=== PATIENT | male | born 1950 | race Caucasian/White ===

== ENCOUNTER 2017-10-23 08:34 | Inpatient (IN) | payer MEDICARE ==
[~2017-10-23] VITALS: Ht 180.3 cm; Wt 78.2 kg
[~2017-10-23 08:34] MED LIST: ASPI-1265 PO; COR3.125T PO; DULO-31 PO; GLIP5TAB13 PO; LOSA50TA37 PO; METF500T PO; NITR0.4T SL; NORCO10T PO; PRAV20TA60 PO
[2017-10-23] MEDS ORDERED: ondansetron/PF 4mg/2ml inj IV ONE (09:00)
[2017-10-23] MEDS ORDERED: morphine 4 MG/ML inj SYRINge IV ONE (09:00)
[2017-10-23] MEDS ORDERED: normal saline 1000ML IV soln IVB ONE (09:00)
[2017-10-23 09:16] LABS: BASOPHILS # (AUTO) 0.1 X10'3 (0-0.2); BASOPHILS % (AUTO) 0.5 % (0-1); EOSINOPHILS # (AUTO) 0.2 X10'3 (0-0.9); EOSINOPHILS % (AUTO) 1.1 % (0-6); HEMATOCRIT 41.2 % (42.0-52.0); HEMOGLOBIN 14.1 g/dl (14.0-17.9); LYMPHOCYTES # (AUTO) 0.9 X10'3 (1.1-4.8); LYMPHOCYTES % (AUTO) 6.5 % (21-51); MEAN CORPUSCULAR HEMOGLOBIN 28.8 PG (27.0-31.0); MEAN CORPUSCULAR HGB CONC 34.3 % (33.0-36.5); MEAN PLATELET VOLUME 8.4 FL (7.4-10.4); MONOCYTES # (AUTO) 1.3 X10'3 (0-0.9); MONOCYTES % (AUTO) 8.9 % (2-12); NEUTROPHILS # (AUTO) 11.7 X10'3 (1.8-7.7); PLATELET COUNT 246 X10'3 (140-440); RED CELL DISTRIBUTION WIDTH 13.4 % (11.5-14.5); WHITE BLOOD COUNT 14.1 X10'3 (4.5-11.0)
[2017-10-23 09:20] LABS: CLARITY,URINE CLEAR (Clear); COLOR,URINE YELLOW (Yellow); GLUCOSE, URINE 100 mg/dl (Neg); KETONES,URINE NEGATIVE (Neg); LEUKOCYTE ESTERASE ,URINE NEGATIVE (Neg); NITRITES, URINE NEGATIVE (Neg); OCCULT BLOOD,URINE SMALL (Neg); PH,URINE 5.5 (4.8-8.0); PROTEIN,URINE NEGATIVE (Neg); UROBILINOGEN,URINE 0.2 E.U/dL (0.2-1.0)
[2017-10-23 09:22] LABS: UA COLLECTION TYPE CLN CATCH MIDSTREAM
[2017-10-23 09:26] LABS: PROTHROMBIN TIME 10.1 SECONDS (9.0-12.0)
[2017-10-23 09:28] LABS: BACTERIA,URINE NONE SEEN /HPF (Neg); COARSE GRANULAR CAST 0-3 /LPF (NEGATIVE); HYALINE CASTS 0-3 /LPF (NEGATIVE); MUCUS STRANDS FEW /LPF (Neg); SQUAMOUS EPITHELIAL CELL,UR FEW /LPF (FEW); WBC,URINE 0-4 /HPF (0-4)
[2017-10-23 09:32] LABS: ALANINE AMINOTRANSFERASE 27 U/L (12-78); ALBUMIN 3.5 G/DL (3.4-5.0); ALBUMIN/GLOBULIN RATIO 0.9 (1.1-1.5); ALKALINE PHOSPHATASE 75 IU/L (46-116); ANION GAP 10 (8-16); ASPARTATE AMINO TRANSFERASE 12 U/L (10-37); BILIRUBIN,TOTAL 1.1 MG/DL (0.1-1.0); BLOOD UREA NITROGEN 13 MG/DL (7-18); BUN/CREATININE RATIO 10.9 (5.4-32.0); CALCIUM 9.2 MG/DL (8.5-10.1); CHLORIDE 100 MMOL/L (99-107); CREATININE 1.19 MG/DL (0.60-1.10); GLUCOSE 233 MG/DL (70-104); LIPASE 129 U/L (73-393); POTASSIUM 4.2 MMOL/L (3.5-5.1); SODIUM 137 MMOL/L (135-145); TOTAL PROTEIN 7.5 G/DL (6.4-8.2); eGFR 61 ML/MIN
[2017-10-23] MEDS ORDERED: MESSAGE TO PHARMACY PO ONE (12:15)
[2017-10-23] MEDS ORDERED: glucagon, human recombinant 1mg kit SUBCUT PRN (12:15)
[2017-10-23] MEDS ORDERED: ondansetron/PF 4mg/2ml inj IV PRN (12:15)
[2017-10-23] MEDS ORDERED: acetaminophen 325mg tablet PO PRN (12:15)
[2017-10-23] MEDS ORDERED: insulin Lispro (HumaLOG) vial - multi-dose SQ SCH (12:15)
[2017-10-23] MEDS ORDERED: magnesium hydroxide 30ml (MOM) UD suspension PO PRN (12:15)
[2017-10-23] MEDS ORDERED: dextrose ORAL solution 15 GM/59 ML bottle PO PRN ×2 (12:15)
[2017-10-23] MEDS ORDERED: HYDROmorphone inj. 0.5 MG/0.5 ML DISP.SYRIN IV PRN (12:15)
[2017-10-23] MEDS ORDERED: dextrose 50%-water 50ml dispensing syringe IV PRN ×2 (12:15)
[2017-10-23 12:38] LABS: HEMOGLOBIN A1C 8.2 % (4.5-6.2)
[2017-10-23] MEDS: normal saline 1000ml 1,000 ML IV SCH ×2 (12:41→23:06)
[2017-10-23] MEDS ORDERED: piperacillin-tazo 2.25gm/50ml 50 ML IV SCH (16:00)
[2017-10-23 16:53] VITALS: BP 152/99
[2017-10-23] MEDS: morphine 4 MG/ML inj SYRINge IV PRN (17:38)
[2017-10-23] MEDS: piperacillin/tazo 4.5gm/100ml 100 ML IV SCH ×2 (17:39→23:41)
[2017-10-23 18:00] VITALS: BP 130/68
[2017-10-23] MEDS ORDERED: temazepam 15mg capsule PO PRN (21:00)
[2017-10-23] MEDS: carVEDilol 3.125mg tablet PO SCH (21:01)
[2017-10-23] MEDS: atorvastatin 10mg tablet PO SCH (21:02)
[2017-10-23] MEDS: insulin glargine (Lantus) pen - multi-dose SQ SCH (21:15)
[2017-10-24] VITALS (13 sets, daily range): BP systolic 100–136; BP diastolic 56–86
[2017-10-24 04:52] LABS: BASOPHILS % (AUTO) 0.1 % (0-1); EOSINOPHILS % (AUTO) 0 % (0-6); HEMATOCRIT 38.2 % (42.0-52.0); HEMOGLOBIN 13.1 g/dl (14.0-17.9); LYMPHOCYTES # (AUTO) 1.1 X10'3 (1.1-4.8); LYMPHOCYTES % (AUTO) 6.5 % (21-51); MEAN CORPUSCULAR HEMOGLOBIN 29.1 PG (27.0-31.0); MEAN CORPUSCULAR HGB CONC 34.3 % (33.0-36.5); MEAN CORPUSCULAR VOLUME 84.9 FL (78-98); MEAN PLATELET VOLUME 9.1 FL (7.4-10.4); MONOCYTES # (AUTO) 2.1 X10'3 (0-0.9); MONOCYTES % (AUTO) 12.7 % (2-12); NEUTROPHILS # (AUTO) 13.1 X10'3 (1.8-7.7); NEUTROPHILS % (AUTO) 80.7 % (42-75); PLATELET COUNT 194 X10'3 (140-440); RED CELL DISTRIBUTION WIDTH 13.7 % (11.5-14.5); WHITE BLOOD COUNT 16.2 X10'3 (4.5-11.0)
[2017-10-24 05:27] LABS: ALANINE AMINOTRANSFERASE 41 U/L (12-78); ALBUMIN 2.7 G/DL (3.4-5.0); ALBUMIN/GLOBULIN RATIO 0.7 (1.1-1.5); ALKALINE PHOSPHATASE 67 IU/L (46-116); ANION GAP 10 (8-16); ASPARTATE AMINO TRANSFERASE 31 U/L (10-37); BLOOD UREA NITROGEN 12 MG/DL (7-18); BUN/CREATININE RATIO 9.2 (5.4-32.0); CALCIUM 8.2 MG/DL (8.5-10.1); CHLORIDE 104 MMOL/L (99-107); CREATININE 1.31 MG/DL (0.60-1.10); GLUCOSE 171 MG/DL (70-104); POTASSIUM 3.7 MMOL/L (3.5-5.1); SODIUM 139 MMOL/L (135-145); TOTAL CARBON DIOXIDE 25.5 MMOL/L (24-32); TOTAL PROTEIN 6.4 G/DL (6.4-8.2); eGFR 55 ML/MIN
[2017-10-24 07:06] LABS: INR 1.2 INR; PROTHROMBIN TIME 12.2 SECONDS (9.0-12.0)
[2017-10-24] MEDS: aspirin 81mg tab.chew PO SCH (07:13)
[2017-10-24] MEDS: normal saline 1000ml 1,000 ML IV SCH ×2 (08:12→15:34)
[2017-10-24] MEDS: carVEDilol 3.125mg tablet PO SCH ×2 (09:30→19:31)
[2017-10-24] MEDS: losartan 50mg tablet PO SCH (09:30)
[2017-10-24] MEDS: duloxetine 30mg CAPSULE.DR PO SCH (09:30)
[2017-10-24] MEDS: piperacillin/tazo 4.5gm/100ml 100 ML IV SCH (09:55)
[2017-10-24] MEDS ORDERED: ringers solution, lacted 1,000 ML IV SCH (11:43)
[2017-10-24] MEDS ORDERED: meperidine/PF 50mg/ml syringe IV PRN ×3 (11:45)
[2017-10-24] MEDS ORDERED: proCHLORperazine 10 MG/2 ml inj IV PRN (11:45)
[2017-10-24] MEDS ORDERED: ondansetron/PF 4mg/2ml inj IV PRN (11:45)
[2017-10-24] MEDS ORDERED: morphine 4 MG/ML inj SYRINge IV PRN ×2 (11:45)
[2017-10-24] MEDS ORDERED: ceFAZolin 1000mg inj ONE (12:23)
[2017-10-24] MEDS ORDERED: BUPIVAcaine/PF 2.5 mg/ml (0.25%) 30ml vial ONE (12:23)
[2017-10-24] MEDS ORDERED: midazolam 2 mg/2 ml injection ONE (12:30)
[2017-10-24] MEDS ORDERED: propofol inj 20 ML IV ONE (12:30)
[2017-10-24] MEDS ORDERED: rocuronium 10mg/ml inj IV ONE (12:30)
[2017-10-24] MEDS ORDERED: fentaNYL /PF 50mcg/ml 5ml ampule ONE (12:30)
[2017-10-24] MEDS ORDERED: metoprolol tartrate 1mg/ml inj IV ONE (13:33)
[2017-10-24] MEDS ORDERED: glycopyrrolate 0.2mg/ml inj ONE (13:34)
[2017-10-24] MEDS ORDERED: neostigmine methylsulfate 1 MG/ML 10ml vial ONE (13:34)
[2017-10-24] MEDS: morphine 4 MG/ML inj SYRINge IV PRN ×2 (15:34→20:08)
[2017-10-24] MEDS: levoFLOXACIN-Levaquin 500mg/D5 100 ML IV SCH (17:38)
[2017-10-24] MEDS: lactobacillus rhamnosus 10,000 MMU CELLS/CAPSULE PO SCH (19:31)
[2017-10-24] MEDS: mag hydrox/Alum hydrox/simeth 30ml oral suspension PO PRN (19:32)
[2017-10-24] MEDS: atorvastatin 10mg tablet PO SCH (20:08)
[2017-10-24] MEDS: insulin glargine (Lantus) pen - multi-dose SQ SCH (22:08)
[2017-10-24] MEDS: Potassium Cl inj 10 MEQ in normal saline 1000ml 1,000 ML IV SCH (22:16)
[2017-10-24] MEDS: HYDROcodone/acetaminophen 10/325mg tab PO PRN (22:23)
[2017-10-25] VITALS: BP 123/71
[2017-10-25 04:00] VITALS: BP 102/68
[2017-10-25 05:27] LABS: BASOPHILS % (AUTO) 0.2 % (0-1); EOSINOPHILS % (AUTO) 0 % (0-6); HEMATOCRIT 34.7 % (42.0-52.0); HEMOGLOBIN 12.1 g/dl (14.0-17.9); LYMPHOCYTES # (AUTO) 0.8 X10'3 (1.1-4.8); LYMPHOCYTES % (AUTO) 8.2 % (21-51); MEAN CORPUSCULAR HEMOGLOBIN 29.7 PG (27.0-31.0); MEAN CORPUSCULAR VOLUME 84.7 FL (78-98); MEAN PLATELET VOLUME 8.7 FL (7.4-10.4); MONOCYTES # (AUTO) 1.1 X10'3 (0-0.9); MONOCYTES % (AUTO) 11.4 % (2-12); NEUTROPHILS # (AUTO) 7.7 X10'3 (1.8-7.7); NEUTROPHILS % (AUTO) 80.2 % (42-75); PLATELET COUNT 191 X10'3 (140-440); RED CELL DISTRIBUTION WIDTH 13.8 % (11.5-14.5); WHITE BLOOD COUNT 9.6 X10'3 (4.5-11.0)
[2017-10-25 05:43] LABS: ALANINE AMINOTRANSFERASE 55 U/L (12-78); ALBUMIN 2.2 G/DL (3.4-5.0); ALBUMIN/GLOBULIN RATIO 0.6 (1.1-1.5); ALKALINE PHOSPHATASE 60 IU/L (46-116); ANION GAP 8 (8-16); ASPARTATE AMINO TRANSFERASE 40 U/L (10-37); BILIRUBIN,TOTAL 1.2 MG/DL (0.1-1.0); BLOOD UREA NITROGEN 16 MG/DL (7-18); BUN/CREATININE RATIO 12.7 (5.4-32.0); CALCIUM 7.6 MG/DL (8.5-10.1); CHLORIDE 104 MMOL/L (99-107); CREATININE 1.26 MG/DL (0.60-1.10); GLUCOSE 210 MG/DL (70-104); POTASSIUM 4.1 MMOL/L (3.5-5.1); SODIUM 139 MMOL/L (135-145); TOTAL CARBON DIOXIDE 26.7 MMOL/L (24-32); TOTAL PROTEIN 6.1 G/DL (6.4-8.2); eGFR 57 ML/MIN
[2017-10-25] MEDS: HYDROcodone/acetaminophen 10/325mg tab PO PRN ×3 (06:20→19:07)
[2017-10-25 07:00] VITALS: BP 104/70
[2017-10-25 11:00] VITALS: BP 100/65
[2017-10-25] MEDS: duloxetine 30mg CAPSULE.DR PO SCH (11:22)
[2017-10-25] MEDS: aspirin 81mg tab.chew PO SCH (11:22)
[2017-10-25] MEDS: levoFLOXACIN-Levaquin 500mg/D5 100 ML IV SCH (11:22)
[2017-10-25] MEDS: carVEDilol 3.125mg tablet PO SCH ×2 (11:22→21:55)
[2017-10-25] MEDS: lactobacillus rhamnosus 10,000 MMU CELLS/CAPSULE PO SCH ×2 (11:22→21:55)
[2017-10-25] MEDS: losartan 50mg tablet PO SCH (11:26)
[2017-10-25] MEDS ORDERED: Potassium Cl inj 10 MEQ in normal saline 1000ml 1,000 ML IV SCH (12:12)
[2017-10-25] MEDS: Potassium Cl inj 10 MEQ in normal saline 1000ml 1,000 ML IV SCH ×2 (17:28→21:38)
[2017-10-25] MEDS: mag hydrox/Alum hydrox/simeth 30ml oral suspension PO PRN (19:06)
[2017-10-25 19:30] VITALS: BP 106/68
[2017-10-25] MEDS: atorvastatin 10mg tablet PO SCH (21:56)
[2017-10-25] MEDS: insulin glargine (Lantus) pen - multi-dose SQ SCH (22:07)
[2017-10-26] VITALS: BP 112/72
[2017-10-26 05:54] LABS: ALANINE AMINOTRANSFERASE 48 U/L (12-78); ALBUMIN 2.1 G/DL (3.4-5.0); ALBUMIN/GLOBULIN RATIO 0.5 (1.1-1.5); ALKALINE PHOSPHATASE 87 IU/L (46-116); ANION GAP 7 (8-16); ASPARTATE AMINO TRANSFERASE 27 U/L (10-37); BILIRUBIN,TOTAL 0.7 MG/DL (0.1-1.0); BLOOD UREA NITROGEN 16 MG/DL (7-18); BUN/CREATININE RATIO 14.4 (5.4-32.0); CALCIUM 8.1 MG/DL (8.5-10.1); CHLORIDE 104 MMOL/L (99-107); CREATININE 1.11 MG/DL (0.60-1.10); GLUCOSE 146 MG/DL (70-104); SODIUM 139 MMOL/L (135-145); TOTAL CARBON DIOXIDE 27.7 MMOL/L (24-32); TOTAL PROTEIN 6.1 G/DL (6.4-8.2); eGFR 66 ML/MIN
[2017-10-26 06:55] VITALS: BP 114/70
[2017-10-26] MEDS: duloxetine 30mg CAPSULE.DR PO SCH (08:04)
[2017-10-26] MEDS: lactobacillus rhamnosus 10,000 MMU CELLS/CAPSULE PO SCH (08:05)
[2017-10-26] MEDS: losartan 50mg tablet PO SCH (08:05)
[2017-10-26] MEDS: aspirin 81mg tab.chew PO SCH (08:05)
[2017-10-26] MEDS: carVEDilol 3.125mg tablet PO SCH (08:05)
[2017-10-26 11:00] VITALS: BP 118/73
[2017-10-26] MEDS ORDERED: levoFLOXACIN 500mg tablet PO SCH (11:00)
[2017-10-26] MEDS ORDERED: LEVO500T89 PO (11:23)
[2017-10-26] MEDS ORDERED: DOCU-28 PO (11:23)
[2017-10-26] MEDS ORDERED: HYDR-3972 PO (11:23)
== END 2017-10-26 13:43 | disposition home or self-care (01) | DRG 854 ==
LOC: ER 08:35 → ED HOLD 12:12 → EDBEDREQ 15:21 → SUR 3N 16:17
PROVIDERS: ADMIT Hospitalist; ATTEND Internal Medicine
PROC: CF141ZZ Planar Nuclear Medicine Imaging of Gallbladder using Technetium 99m (Tc-99m) (ICD-10-PCS; 2017-10-24)
PROC: 0FT44ZZ Resection of Gallbladder, Percutaneous Endoscopic Approach (ICD-10-PCS; principal; 2017-10-24 12:31)
DX: A41.9 Sepsis, unspecified organism (principal); K81.0 Acute cholecystitis; E11.9 Type 2 diabetes mellitus without complications; E78.00 Pure hypercholesterolemia, unspecified; E78.5 Hyperlipidemia, unspecified; G89.29 Other chronic pain; I10 Essential (primary) hypertension; I25.10 Atherosclerotic heart disease of native coronary artery without angina pectoris; K21.9 Gastro-esophageal reflux disease without esophagitis; K43.9 Ventral hernia without obstruction or gangrene; K57.30 Diverticulosis of large intestine without perforation or abscess without bleeding; Z95.5 Presence of coronary angioplasty implant and graft; Z79.84 Long term (current) use of oral hypoglycemic drugs; Z79.899 Other long term (current) drug therapy; Z82.49 Family history of ischemic heart disease and other diseases of the circulatory system
CPT/HCPCS: 36415; 71045; 74176; 76700; 78226; 80053; 81001; 82948; 83036; 83690; 84484; 85025; 85610; 87070; 88304; 93005; 96361; 96374; 96375; 99285; A6251; A6258; A6449; A7000; A9537; J0690; J1815; J1956; J2250; J2270; J2405; J2543; J2704; J2710; J3010; J3480; J3490; J7030; J7120

== ENCOUNTER 2021-10-11 13:46 | Emergency (ER) | payer MEDICARE ==
[~2021-10-11] VITALS: Ht 180.3 cm; Wt 94.0 kg
[~2021-10-11 13:46] MED LIST changes: +DOCU-28 PO; +HYDR-3972 PO; +LEVO500T90 PO; -LOSA50TA37 PO; +LOSA50TA64 PO; -NORCO10T PO; -PRAV20TA60 PO
[2021-10-11 14:01] VITALS: BP 143/82
[2021-10-11] MEDS ORDERED: cyclobenzaprine 10mg tablet PO ONE (15:30)
[2021-10-11] MEDS ORDERED: CYCL-1 PO (17:25)
== END 2021-10-11 17:30 | disposition home or self-care (01) ==
LOC: ER 13:47
DX: M54.2 Cervicalgia (principal); H92.01 Otalgia, right ear; I25.10 Atherosclerotic heart disease of native coronary artery without angina pectoris; E78.00 Pure hypercholesterolemia, unspecified; I10 Essential (primary) hypertension; K21.9 Gastro-esophageal reflux disease without esophagitis; E11.9 Type 2 diabetes mellitus without complications; G89.29 Other chronic pain; Z98.890 Other specified postprocedural states; Z79.82 Long term (current) use of aspirin; Z79.2 Long term (current) use of antibiotics; Z79.899 Other long term (current) drug therapy
CPT/HCPCS: 70450; 72125; 99284

== ENCOUNTER 2024-01-07 22:56 | Emergency (ER) | payer MEDICARE ==
[~2024-01-07] VITALS: Ht 177.8 cm; Wt 93.3 kg
[~2024-01-07 22:56] MED LIST changes: +CYCL-1 PO; -GLIP5TAB13 PO; +GLIP5TAB23 PO; +LEVO-65 PO; -LEVO500T90 PO
[2024-01-07] MEDS ORDERED: ALBU8HFA INH (23:24)
[2024-01-07 23:40] VITALS: BP 127/77; PULSE 67; RESP 20; TEMP 98.4; O2SAT 98
== END 2024-01-07 23:40 | disposition home or self-care (01) ==
LOC: ER 22:56
DX: J98.01 Acute bronchospasm (principal); R05.9 Cough, unspecified; E78.00 Pure hypercholesterolemia, unspecified; I10 Essential (primary) hypertension; K21.9 Gastro-esophageal reflux disease without esophagitis; E11.9 Type 2 diabetes mellitus without complications; Z79.82 Long term (current) use of aspirin; Z79.899 Other long term (current) drug therapy; Z79.2 Long term (current) use of antibiotics
CPT/HCPCS: 99283

== ENCOUNTER 2024-09-27 07:06 | Emergency (ER) | payer MEDICARE ==
[~2024-09-27] VITALS: Ht 180.3 cm; Wt 88.8 kg
[2024-09-27 08:44] LABS: BASOPHILS % (AUTO) 0.4 % (0-1); EOSINOPHILS # (AUTO) 0.1 X10'3 (0-0.9); EOSINOPHILS % (AUTO) 0.9 % (0-6); HEMATOCRIT 40.8 % (42.0-52.0); HEMOGLOBIN 13.9 g/dl (14.0-17.9); LYMPHOCYTES % (AUTO) 7.7 % (21-51); MEAN CORPUSCULAR HEMOGLOBIN 30.2 PG (27.0-31.0); MEAN CORPUSCULAR HGB CONC 34.1 g/dL (33.0-36.5); MEAN CORPUSCULAR VOLUME 88.5 FL (78-98); MEAN PLATELET VOLUME 8.4 FL (7.4-10.4); MONOCYTES % (AUTO) 7.7 % (2-12); NEUTROPHILS # (AUTO) 10.4 X10'3 (1.8-7.7); NEUTROPHILS % (AUTO) 83.3 % (42-75); PLATELET COUNT 278 X10'3 (140-440); RED BLOOD COUNT 4.61 X10'6 (4.70-6.10); RED CELL DISTRIBUTION WIDTH 13.9 % (11.5-14.5); WHITE BLOOD COUNT 12.4 X10'3 (4.5-11.0)
[2024-09-27 09:03] LABS: ALANINE AMINOTRANSFERASE 21 U/L (12-78); ALBUMIN 3.5 G/DL (3.4-5.0); ALBUMIN/GLOBULIN RATIO 0.9 (1.1-1.5); ALKALINE PHOSPHATASE 122 IU/L (46-116); ANION GAP 8 (8-16); ASPARTATE AMINO TRANSFERASE 19 U/L (10-37); BILIRUBIN,TOTAL 0.8 MG/DL (0.1-1.0); BLOOD UREA NITROGEN 15 MG/DL (7-18); BUN/CREATININE RATIO 12.7 (10.0-20.0); CALCIUM 9.4 MG/DL (8.5-10.1); CHLORIDE 105 MMOL/L (99-107); CREATININE 1.18 MG/DL (0.60-1.10); GLUCOSE 145 MG/DL (70-104); LIPASE 61 U/L (16-77); POTASSIUM 4.6 MMOL/L (3.5-5.1); SODIUM 138 MMOL/L (135-145); TOTAL CARBON DIOXIDE 25.4 MMOL/L (24-32); TOTAL PROTEIN 7.5 G/DL (6.4-8.2); eCRCL 59 ML/MIN; eGFR 60 ML/MIN
[2024-09-27] MEDS: ondansetron/PF 4mg/2ml inj IV ONE (09:35)
[2024-09-27] MEDS: morphine 4 MG/ML inj SYRINge IV ONE (09:36)
[2024-09-27] MEDS: normal saline 1000ML IV soln IVB ONE (09:36)
[2024-09-27 10:12] LABS: BILIRUBIN,URINE NEGATIVE (Neg); CLARITY,URINE CLEAR (Clear); COLOR,URINE YELLOW (Yellow); GLUCOSE, URINE NEGATIVE (Neg); KETONES,URINE NEGATIVE (Neg); LEUKOCYTE ESTERASE ,URINE NEGATIVE (Neg); NITRITES, URINE NEGATIVE (Neg); OCCULT BLOOD,URINE MODERATE (Neg); PH,URINE 5.5 (4.8-8.0); PROTEIN,URINE NEGATIVE (Neg); UROBILINOGEN,URINE 0.2 E.U/dL (0.2-1.0)
[2024-09-27 10:14] LABS: UA COLLECTION TYPE URINAL
[2024-09-27 10:17] LABS: BACTERIA,URINE NONE SEEN /HPF (Neg); RBC,URINE 50-100 /HPF (0-2); SQUAMOUS EPITHELIAL CELL,UR NONE SEEN /LPF (FEW); WBC,URINE 0-4 /HPF (0-4)
[2024-09-27] MEDS: ketorolac trometh 15mg/ml vial 15 MG/ML ML IV ONE (10:25)
[2024-09-27 11:08] VITALS: BP 107/56; PULSE 84; RESP 16; TEMP 97.5; O2SAT 97
== END 2024-09-27 11:11 | disposition home or self-care (01) ==
LOC: ER 07:07
DX: N13.2 Hydronephrosis with renal and ureteral calculous obstruction (principal); I25.10 Atherosclerotic heart disease of native coronary artery without angina pectoris; E78.00 Pure hypercholesterolemia, unspecified; I10 Essential (primary) hypertension; K21.9 Gastro-esophageal reflux disease without esophagitis; E11.9 Type 2 diabetes mellitus without complications; Z87.442 Personal history of urinary calculi; Z79.82 Long term (current) use of aspirin
CPT/HCPCS: 36415; 74176; 80053; 81001; 83690; 84145; 85025; 96361; 96374; 96375; 99285; J1885; J2270; J2405; J7030